=== PATIENT | female | born 1950 | race Asian ===

== ENCOUNTER 2022-01-23 10:00 | Observation (INO) | payer MEDICARE ==
[2022-01-21 11:25] LABS: BASOPHILS % 0.6 % (0.0-1.0); EOSINOPHILS # (AUTO) 0.1 (0.0-0.4); EOSINOPHILS % 1.3 % (0.0-6.0); HEMOGLOBIN 12.5 g/dL (12.0-16.0); LYMPHOCYTES # (AUTO) 2.3 (1.0-3.2); LYMPHOCYTES % 41.9 % (18.0-39.1); MEAN CORPUSCULAR HEMOGLOBIN 32.6 pg (28-32); MEAN CORPUSCULAR HGB CONC 32.9 g/dL (31-35); MONOCYTES # (AUTO) 0.5 (0.2-0.8); MONOCYTES % 9.3 % (4.4-11.3); NEUTROPHILS # (AUTO) 2.5 (2.1-6.9); NEUTROPHILS % 46.5 % (38.7-80.0); PLATELET COUNT 348 x10e3/uL (140-360); RED BLOOD COUNT 3.84 x10e6/uL (3.6-5.1); RED CELL DISTRIBUTION WIDTH 13.4 % (11.7-14.4)
[2022-01-21 11:50] LABS: ANION GAP 11.9 mmol/L (8-16); CALCIUM 9.1 mg/dL (8.4-10.2); CREATININE, SERUM 0.64 mg/dL (0.57-1.11); POTASSIUM 3.9 mmol/L (3.5-5.1)
[~2022-01-23] VITALS: Ht 154.9 cm; Wt 59.9 kg
[~2022-01-23 10:00] MED LIST: AMLODIPINE BESYL5 MG PO; MULTI-VITAMIN1 EACH PO; NEXIUM40 MG PO; PANTOPRAZOLE SO40 MG PO; SIMVASTATIN20 MG PO
[2022-01-23] MEDS ORDERED: HAIR SKIN NAIL1 EACH PO (10:21)
[2022-01-23] MEDS ORDERED: BUPIVACAINE 0.25% 30ML SDV ONE (13:23)
[2022-01-23] MEDS ORDERED: KETOROLAC TROMETHAMINE 30 MG/ML VIAL IV PRN (15:30)
[2022-01-23] MEDS ORDERED: ONDANSETRON HCL INJ 2MG/ML 2ML 2 MG/ML VIAL IV PRN (15:30)
[2022-01-23] MEDS ORDERED: FENTANYL CITRATE/PF 100MCG/2 ML INJ ONE (15:52)
[2022-01-23] MEDS: SODIUM CHLORIDE 0.9% 1000ML 1,000 ML IV SCH (17:16)
[2022-01-23 19:58] VITALS: BP 105/68
[2022-01-23 20:00] VITALS: BP 105/68
[2022-01-23] MEDS: HYDROMORPHONE 1MG/1ML INJ IV PRN (23:00)
[2022-01-24] VITALS (8 sets, daily range): BP systolic 110–118; BP diastolic 66–72
[2022-01-24] MEDS: SODIUM CHLORIDE 0.9% 1000ML 1,000 ML IV SCH ×2 (05:46→14:22)
[2022-01-24 06:14] LABS: BASOPHILS % 0.1 % (0.0-1.0); HEMATOCRIT 32.8 % (34.2-44.1); HEMOGLOBIN 10.8 g/dL (12.0-16.0); LYMPHOCYTES # (AUTO) 1.4 (1.0-3.2); LYMPHOCYTES % 16.7 % (18.0-39.1); MEAN CORPUSCULAR HEMOGLOBIN 32.1 pg (28-32); MEAN CORPUSCULAR HGB CONC 32.9 g/dL (31-35); MEAN CORPUSCULAR VOLUME 97.6 fL (81-99); MONOCYTES # (AUTO) 0.6 (0.2-0.8); MONOCYTES % 7.7 % (4.4-11.3); NEUTROPHILS # (AUTO) 6.2 (2.1-6.9); PLATELET COUNT 319 x10e3/uL (140-360); RED BLOOD COUNT 3.36 x10e6/uL (3.6-5.1); RED CELL DISTRIBUTION WIDTH 13.2 % (11.7-14.4)
[2022-01-24 06:30] LABS: ANION GAP 14.2 mmol/L (8-16); CALCIUM 7.7 mg/dL (8.4-10.2); CREATININE, SERUM 0.58 mg/dL (0.57-1.11); POTASSIUM 4.2 mmol/L (3.5-5.1)
[2022-01-24] MEDS: HYDROCODONE/APAP 7.5MG-325MG 1 EA TAB PO PRN ×2 (15:12→20:48)
[2022-01-25 00:21] VITALS: BP 110/69
[2022-01-25 04:00] VITALS: BP 116/74
[2022-01-25] MEDS: HYDROCODONE/APAP 7.5MG-325MG 1 EA TAB PO PRN ×2 (05:31→09:55)
[2022-01-25 07:19] VITALS: BP 110/66
[2022-01-25 09:00] VITALS: BP 110/66
[2022-01-25] MEDS: SODIUM CHLORIDE 0.9% 1000ML 1,000 ML IV SCH ×2 (09:52→09:54)
[2022-01-25] MEDS: HYDROMORPHONE 1MG/1ML INJ IV PRN (09:55)
[2022-01-25 11:04] VITALS: BP 101/64
== END 2022-01-25 15:08 | disposition home or self-care (01) ==
LOC: OR 10:00 → PACU V 15:26 → MED/SURG 16:19
PROVIDERS: ADMIT Surgery; ATTEND Surgery
DX: K43.2 Incisional hernia without obstruction or gangrene (principal); I10 Essential (primary) hypertension; E78.5 Hyperlipidemia, unspecified; Z90.49 Acquired absence of other specified parts of digestive tract; Z01.810 Encounter for preprocedural cardiovascular examination; Z01.812 Encounter for preprocedural laboratory examination; Z01.818 Encounter for other preprocedural examination; Z20.822 Contact with and (suspected) exposure to COVID-19; K21.9 Gastro-esophageal reflux disease without esophagitis
CPT/HCPCS: 0223U; 36415 ×2; 49565; 49568; 71046; 80048 ×2; 85025 ×2; 88302; 93005; C1713; C1781; G0378 ×3; J0690; J1170; J2405; J3010; J7030 ×3

== ENCOUNTER 2022-02-02 02:58 | Inpatient (IN) | payer MEDICARE ==
[~2022-02-02] VITALS: Ht 162.6 cm; Wt 61.2 kg
[2022-02-02] VITALS (10 sets, daily range): BP systolic 110–131; BP diastolic 69–82
[~2022-02-02 02:58] MED LIST changes: +HAIR SKIN NAIL1 EACH PO
[2022-02-02] MEDS ORDERED: HYDROMORPHONE 1MG/1ML INJ IV PRN (05:00)
[2022-02-02] MEDS: SODIUM CHLORIDE 0.9% 250ML IRRIG IR SCH ×5 (05:00→20:07)
[2022-02-02] MEDS: SODIUM CHLORIDE 0.9% 1000ML 1,000 ML IV SCH ×2 (06:09→15:09)
[2022-02-02 07:02] LABS: BASOPHILS % 0.3 % (0.0-1.0); EOSINOPHILS # (AUTO) 0.1 (0.0-0.4); EOSINOPHILS % 0.4 % (0.0-6.0); HEMATOCRIT 37.9 % (34.2-44.1); HEMOGLOBIN 13.1 g/dL (12.0-16.0); LYMPHOCYTES # (AUTO) 1.6 (1.0-3.2); LYMPHOCYTES % 13.6 % (18.0-39.1); MEAN CORPUSCULAR HEMOGLOBIN 32.4 pg (28-32); MEAN CORPUSCULAR HGB CONC 34.6 g/dL (31-35); MEAN CORPUSCULAR VOLUME 93.8 fL (81-99); MONOCYTES # (AUTO) 0.9 (0.2-0.8); MONOCYTES % 7.9 % (4.4-11.3); NEUTROPHILS # (AUTO) 9.1 (2.1-6.9); NEUTROPHILS % 77.3 % (38.7-80.0); PLATELET COUNT 275 x10e3/uL (140-360); RED BLOOD COUNT 4.04 x10e6/uL (3.6-5.1)
[2022-02-02 07:12] LABS: ALBUMIN 3.4 g/dL (3.5-5.0); ALBUMIN/GLOBULIN RATIO 0.8 (0.8-2.0); ANION GAP 16.3 mmol/L (8-16); CALCIUM 8.6 mg/dL (8.4-10.2); CREATININE, SERUM 0.6 mg/dL (0.57-1.11); POTASSIUM 3.3 mmol/L (3.5-5.1)
[2022-02-02] MEDS: BISACODYL 10 MG SUPP PR SCH (20:07)
[2022-02-03] VITALS (7 sets, daily range): BP systolic 101–127; BP diastolic 68–84
[2022-02-03] MEDS: SODIUM CHLORIDE 0.9% 250ML IRRIG IR SCH ×6 (00:33→21:37)
[2022-02-03] MEDS: SODIUM CHLORIDE 0.9% 1000ML 1,000 ML IV SCH ×2 (00:33→21:37)
[2022-02-03] MEDS: ONDANSETRON HCL INJ 2MG/ML 2ML 2 MG/ML VIAL IV PRN ×2 (02:53→11:21)
[2022-02-03] MEDS: HYDROMORPHONE 1MG/1ML INJ IV PRN ×2 (02:54→11:21)
[2022-02-03 06:20] LABS: BASOPHILS % 0.3 % (0.0-1.0); EOSINOPHILS # (AUTO) 0.1 (0.0-0.4); EOSINOPHILS % 0.8 % (0.0-6.0); HEMATOCRIT 32.4 % (34.2-44.1); HEMOGLOBIN 11.1 g/dL (12.0-16.0); LYMPHOCYTES # (AUTO) 1.8 (1.0-3.2); MEAN CORPUSCULAR HEMOGLOBIN 32.3 pg (28-32); MEAN CORPUSCULAR HGB CONC 34.3 g/dL (31-35); MEAN CORPUSCULAR VOLUME 94.2 fL (81-99); MONOCYTES # (AUTO) 0.9 (0.2-0.8); MONOCYTES % 8.5 % (4.4-11.3); NEUTROPHILS # (AUTO) 7.6 (2.1-6.9); NEUTROPHILS % 73.1 % (38.7-80.0); PLATELET COUNT 391 x10e3/uL (140-360); RED BLOOD COUNT 3.44 x10e6/uL (3.6-5.1); RED CELL DISTRIBUTION WIDTH 13.2 % (11.7-14.4)
[2022-02-03 06:42] LABS: ALBUMIN 2.9 g/dL (3.5-5.0); ALBUMIN/GLOBULIN RATIO 0.9 (0.8-2.0); ANION GAP 10.1 mmol/L (8-16); CALCIUM 7.4 mg/dL (8.4-10.2); CREATININE, SERUM 0.51 mg/dL (0.57-1.11); POTASSIUM 3.1 mmol/L (3.5-5.1)
[2022-02-03] MEDS: BISACODYL 10 MG SUPP PR SCH ×2 (09:14→21:37)
[2022-02-03] MEDS ORDERED: POTASSIUM CHLORIDE 20MEQ/100ML 100 ML IV ONE (17:00)
[2022-02-04] MEDS: ONDANSETRON HCL INJ 2MG/ML 2ML 2 MG/ML VIAL IV PRN ×2 (00:33→06:27)
[2022-02-04] MEDS: HYDROMORPHONE 1MG/1ML INJ IV PRN ×2 (00:33→06:27)
[2022-02-04] MEDS: SODIUM CHLORIDE 0.9% 250ML IRRIG IR SCH ×2 (01:21→04:34)
[2022-02-04 05:17] LABS: BASOPHILS % 0.4 % (0.0-1.0); EOSINOPHILS # (AUTO) 0.2 (0.0-0.4); EOSINOPHILS % 1.9 % (0.0-6.0); HEMATOCRIT 32.1 % (34.2-44.1); HEMOGLOBIN 10.8 g/dL (12.0-16.0); LYMPHOCYTES # (AUTO) 1.6 (1.0-3.2); LYMPHOCYTES % 20.4 % (18.0-39.1); MEAN CORPUSCULAR HGB CONC 33.6 g/dL (31-35); MEAN CORPUSCULAR VOLUME 95.3 fL (81-99); MONOCYTES # (AUTO) 0.8 (0.2-0.8); MONOCYTES % 9.8 % (4.4-11.3); NEUTROPHILS # (AUTO) 5.2 (2.1-6.9); NEUTROPHILS % 67.2 % (38.7-80.0); PLATELET COUNT 364 x10e3/uL (140-360); RED BLOOD COUNT 3.37 x10e6/uL (3.6-5.1); RED CELL DISTRIBUTION WIDTH 12.8 % (11.7-14.4)
[2022-02-04 05:37] LABS: ALBUMIN 2.8 g/dL (3.5-5.0); ALBUMIN/GLOBULIN RATIO 0.8 (0.8-2.0); CREATININE, SERUM 0.48 mg/dL (0.57-1.11)
[2022-02-04 05:44] LABS: CALCIUM 6.7 mg/dL (8.4-10.2)
[2022-02-04] MEDS ORDERED: POTASSIUM CHLORIDE 20MEQ/100ML 100 ML IV ONE (06:50)
[2022-02-04 08:00] VITALS: BP 118/67
[2022-02-04 08:18] VITALS: BP 118/67
[2022-02-04] MEDS: BISACODYL 10 MG SUPP PR SCH (09:30)
[2022-02-04 12:06] VITALS: BP 119/63
[2022-02-04] MEDS: KCL 20MEQ/.9 SOD CHL 1,000 ML IV SCH ×2 (13:45→23:28)
[2022-02-04 16:35] VITALS: BP 124/65
[2022-02-04 20:00] VITALS: BP 120/58
[2022-02-05] VITALS (8 sets, daily range): BP systolic 110–123; BP diastolic 50–77
[2022-02-05 05:35] LABS: BASOPHILS % 0.1 % (0.0-1.0); EOSINOPHILS # (AUTO) 0.1 (0.0-0.4); EOSINOPHILS % 1.1 % (0.0-6.0); HEMATOCRIT 32.3 % (34.2-44.1); HEMOGLOBIN 10.8 g/dL (12.0-16.0); LYMPHOCYTES # (AUTO) 1.6 (1.0-3.2); LYMPHOCYTES % 18.1 % (18.0-39.1); MEAN CORPUSCULAR HEMOGLOBIN 31.7 pg (28-32); MEAN CORPUSCULAR HGB CONC 33.4 g/dL (31-35); MEAN CORPUSCULAR VOLUME 94.7 fL (81-99); MONOCYTES # (AUTO) 0.9 (0.2-0.8); MONOCYTES % 9.8 % (4.4-11.3); NEUTROPHILS # (AUTO) 6.2 (2.1-6.9); NEUTROPHILS % 70.7 % (38.7-80.0); PLATELET COUNT 391 x10e3/uL (140-360); RED BLOOD COUNT 3.41 x10e6/uL (3.6-5.1)
[2022-02-05 06:03] LABS: ANION GAP 15.6 mmol/L (8-16); CREATININE, SERUM 0.53 mg/dL (0.57-1.11); POTASSIUM 3.6 mmol/L (3.5-5.1)
[2022-02-05 06:20] LABS: CALCIUM 6.7 mg/dL (8.4-10.2)
[2022-02-05] MEDS: D5.45%NS/KCL 20MEQ 1,000 ML IV SCH ×2 (06:40→14:55)
[2022-02-05] MEDS: BISACODYL 10 MG SUPP PR SCH ×2 (08:04→21:10)
[2022-02-06 00:03] VITALS: BP 114/69
[2022-02-06 05:57] VITALS: BP 93/79
[2022-02-06 07:59] VITALS: BP 115/70
[2022-02-06 08:23] VITALS: BP 115/70
[2022-02-06 12:02] VITALS: BP 110/75
[2022-02-06] MEDS: D5.45%NS/KCL 20MEQ 1,000 ML IV SCH (14:03)
[2022-02-06 15:42] VITALS: BP 118/67
== END 2022-02-06 18:09 | disposition home or self-care (01) | DRG 390 ==
LOC: MED/SURG 04:26
PROVIDERS: ADMIT Surgery; ATTEND Surgery
DX: K56.600 Partial intestinal obstruction, unspecified as to cause (principal); I10 Essential (primary) hypertension; Z90.710 Acquired absence of both cervix and uterus; Z90.49 Acquired absence of other specified parts of digestive tract; Z98.890 Other specified postprocedural states
CPT/HCPCS: 36415; 74019; 74022; 80048; 80053; 82150; 82948; 85025; 96361; J0696; J1170; J2405; J3480; J7030